=== PATIENT | male | born 1950 | race Caucasian/White ===

== ENCOUNTER 2020-12-26 12:20 | Emergency (ER) | payer BC, MEDICARE ==
[~2020-12-26 12:20] MED LIST: ACTOS45 MG PO; ATIVAN0.5 MG PO; METFORMIN ER500 MG PO; NORCO 325 MG-101 TA1 PO; NORVASC 5MG5 MG/TAB PO; PLAVIX 75MG TAB75 MG PO; PROZAC20 MG PO; TRAZODONE50 MG PO; ZESTRIL 10MG10 MG PO; ZETIA 10MG TAB10 MG PO
[2020-12-26 13:40] LABS: EOS # 0.2 (0.04-0.40); EOS % 2.8 % (0.0-4.0); HEMATOCRIT 47.4 % (42.0-52.0); HEMOGLOBIN 14.8 g/dL (13.5-18.0); LYMPH# 0.9 (1.50-4.00); MEAN CELL VOLUME 100 fl (78-100); MEAN CORPUSCULAR HEMOGLOBIN 31 pg (27-31); MEAN CORPUSCULAR HGB CONC 31 g/dL (33-37); MEAN PLATELET VOLUME 9.7 fl (7.4-10.4); MONO # 0.7 (0.20-0.80); PLATELET COUNT 179 K/mm3 (130-400); RED BLOOD COUNT 4.75 M/mm3 (4.20-5.60); RED CELL DISTRIBUTION WIDTH 14.9 % (11.5-14.5); WHITE BLOOD COUNT 6.8 K/mm3 (4.8-10.8)
[2020-12-26 13:49] LABS: ALBUMIN 3.7 g/dL (3.4-4.8)
[2020-12-26 13:50] LABS: POTASSIUM 4.6 mmol/L (3.5-5.1); PROTHROMBIN TIME 9.9 SECONDS (9.0-12.0); SODIUM 140 mmol/L (136-145)
[2020-12-26 13:51] LABS: CALCIUM 8.7 mg/dL (8.3-10.5)
[2020-12-26 13:52] LABS: GLUCOSE 192 mg/dL (75-110)
[2020-12-26 13:53] LABS: CARBON DIOXIDE 23 mmol/L (23-31)
[2020-12-26 13:54] LABS: TOTAL BILIRUBIN 0.3 mg/dL (0.2-1.2)
[2020-12-26 13:57] LABS: AST-SGOT 23 U/L (5-34)
[2020-12-26 13:59] LABS: ALT/SGPT 44 U/L (0-55)
[2020-12-26 14:05] LABS: TROPONIN-I < 0.03 ng/mL (<0.030)
[2020-12-26 14:29] LABS: URINE APPEARANCE CLEAR; URINE BLOOD NEGATIVE (NEGATIVE); URINE COLOR YELLOW; URINE GLUCOSE NEGATIVE (NEGATIVE); URINE KETONE NEGATIVE (NEGATIVE); URINE LEUKOCYTE ESTERASE 1+ (NEGATIVE); URINE NITRATE NEGATIVE (NEGATIVE); URINE PROTEIN(semi-quant) 1+ mg/dL (NEGATIVE); URINE UROBILINOGEN NORMAL (NORMAL)
[2020-12-26 14:30] LABS: URINE BILIRUBIN NEGATIVE (NEGATIVE); URINE MUCUS PRESENT (NOT PRESENT)
[2020-12-26] MEDS ORDERED: BACTRIM DS TAB1 EACH PO (14:53)
[2020-12-26 15:02] VITALS: BP 189/90
== END 2020-12-26 15:02 | disposition home or self-care (01) ==
LOC: ED 12:20
PROVIDERS: Physician Assistant
DX: N39.0 Urinary tract infection, site not specified (principal); S80.812A Abrasion, left lower leg, initial encounter; L03.116 Cellulitis of left lower limb; Z20.822 Contact with and (suspected) exposure to COVID-19; Z79.84 Long term (current) use of oral hypoglycemic drugs; Z79.02 Long term (current) use of antithrombotics/antiplatelets; X58.XXXA Exposure to other specified factors, initial encounter
CPT/HCPCS: J0696

== ENCOUNTER → 2021-05-16 | Outpatient (CLI) | payer BC, MEDICARE ==
[~2021-05-16] MED LIST changes: +BACTRIM DS TAB1 EACH PO
== END ==
LOC: RAD 16:59 → AMSURD 16:59
DX: Z01.812 Encounter for preprocedural laboratory examination (principal)

== ENCOUNTER → 2021-06-11 | Outpatient (CLI) | payer BC, MEDICARE | LOC: RAD 15:08 | DX: R60.0 Localized edema (principal) ==

== ENCOUNTER 2023-09-08 11:32 | Emergency (ER) | payer BC, MEDICARE ==
[~2023-09-08] VITALS: Ht 157.5 cm; Wt 90.7 kg
[~2023-09-08 11:32] MED LIST changes: -ZESTRIL 10MG10 MG PO; +ZESTRIL20 M1 PO
[2023-09-08] MEDS ORDERED: LINZESS72 MCG PO (12:14)
[2023-09-08] MEDS ORDERED: ATORVASTATIN CA40 MG PO (12:15)
[2023-09-08] MEDS ORDERED: NITROGLYCERIN0.4 M1 SL (12:15)
[2023-09-08] MEDS ORDERED: TRESIBA FL200 UNIT/1 SQ (12:16)
[2023-09-08] MEDS ORDERED: NOVOLOG FLEX100 U/ML SQ (12:20)
[2023-09-08] MEDS ORDERED: AMIODARONE200 MG PO (12:21)
[2023-09-08] MEDS ORDERED: WELLBUTRIN XL300 M1 PO (12:22)
[2023-09-08] MEDS ORDERED: LAMOTRIGINE200 MG PO (12:23)
[2023-09-08] MEDS ORDERED: BD ULTRA-FINE1 EACH MC (12:23)
[2023-09-08] MEDS ORDERED: FLOMAX0.4 MG PO (12:24)
[2023-09-08] MEDS ORDERED: GLUCAGON EMERGEN1 M1 IJ (12:24)
[2023-09-08] MEDS ORDERED: ACETAMINOPHEN-H1 TA1 PO (12:24)
[2023-09-08] MEDS ORDERED: QUETIAPINE FUMA50 MG PO (12:25)
[2023-09-08] MEDS ORDERED: DOCUSATE SOD100 MG PO (12:27)
[2023-09-08] MEDS ORDERED: VITAMIN D21250 MCG PO (12:27)
[2023-09-08] MEDS ORDERED: FUROSEMIDE20 MG PO (12:29)
[2023-09-08] MEDS ORDERED: TYLENOL PM EXTR1 TA1 PO (12:29)
[2023-09-08 13:02] LABS: EOS # 0.03 K/mm3 (0.04-0.40); EOS % 0.5 % (0.0-4.0); HEMATOCRIT 45.6 % (42.0-52.0); HEMOGLOBIN 14.5 g/dL (13.5-18.0); LYMPH# 1.07 K/mm3 (1.50-4.00); MEAN CELL VOLUME 102 fl (78-100); MEAN CORPUSCULAR HEMOGLOBIN 33 pg (27-31); MEAN CORPUSCULAR HGB CONC 32 g/dL (33-37); MEAN PLATELET VOLUME 9.7 fl (7.4-10.4); PLATELET COUNT 178 K/mm3 (130-400); RED BLOOD COUNT 4.46 M/mm3 (4.20-5.60); RED CELL DISTRIBUTION WIDTH 13.4 % (11.5-14.5); WHITE BLOOD COUNT 5.8 K/mm3 (4.8-10.8)
[2023-09-08 13:10] LABS: ALBUMIN 4.3 g/dL (3.4-4.8); SODIUM 139 mmol/L (136-145)
[2023-09-08 13:11] LABS: CALCIUM 9.8 mg/dL (8.3-10.5)
[2023-09-08 13:12] LABS: GLUCOSE 179 mg/dL (75-110)
[2023-09-08 13:14] LABS: CARBON DIOXIDE 22 mmol/L (23-31); TOTAL BILIRUBIN 0.5 mg/dL (0.2-1.2)
[2023-09-08 13:18] LABS: AST-SGOT 24 U/L (5-34)
[2023-09-08 13:19] LABS: ALT/SGPT 29 U/L (0-55)
[2023-09-08 13:27] LABS: TROPONIN-I < 0.030 ng/mL (<0.030)
[2023-09-08] MEDS ORDERED: PREDNISONE10 MG PO (14:32)
[2023-09-08] MEDS ORDERED: IPRATROPIUM BROM3 M1 IH (14:32)
[2023-09-08] MEDS ORDERED: MORGIDOX 1X100100 MG PO (14:32)
[2023-09-08 14:44] VITALS: BP 177/77
== END 2023-09-08 14:46 | disposition home or self-care (01) ==
LOC: ED 11:32
PROVIDERS: Physician Assistant
DX: J44.1 Chronic obstructive pulmonary disease with (acute) exacerbation (principal); I10 Essential (primary) hypertension; Z95.810 Presence of automatic (implantable) cardiac defibrillator; Z98.61 Coronary angioplasty status
CPT/HCPCS: J7512

== ENCOUNTER → 2023-11-12 | Outpatient (CLI) | payer BC, MEDICARE ==
[~2023-11-12] VITALS: Ht 157.5 cm; Wt 88.6 kg
[~2023-11-12] MED LIST changes: +ACETAMINOPHEN-H1 TA1 PO; +AMIODARONE200 MG PO; +ATORVASTATIN CA40 MG PO; +BD ULTRA-FINE1 EACH MC; +DOCUSATE SOD100 MG PO; +FLOMAX0.4 MG PO; +FUROSEMIDE20 MG PO; +GLUCAGON EMERGEN1 M1 IJ; +IPRATROPIUM BROM3 M1 IH; +LAMOTRIGINE200 MG PO; +LINZESS72 MCG PO; +MORGIDOX 1X100100 MG PO; +NITROGLYCERIN0.4 M1 SL; +NOVOLOG FLEX100 U/ML SQ; +PREDNISONE10 MG PO; +QUETIAPINE FUMA50 MG PO; +TRESIBA FL200 UNIT/1 SQ; +TYLENOL PM EXTR1 TA1 PO; +VITAMIN D21250 MCG PO; +WELLBUTRIN XL300 M1 PO
[2023-11-12 08:35] VITALS: BP 165/79
[2023-11-12 10:15] VITALS: BP 153/67
[2023-11-13 23:17] LABS: ADRENOCORTICOTROPIC HORMONE 35 pg/mL (5-27)
== END ==
LOC: AMSURD 06:18
PROVIDERS: Internal Medicine
DX: I95.1 Orthostatic hypotension (principal)
CPT/HCPCS: J0834

== ENCOUNTER → 2024-07-22 | Outpatient (CLI) | payer BC, MEDICARE | LOC: RAD 15:05 | DX: Z01.818 Encounter for other preprocedural examination (principal); I51.7 Cardiomegaly; Z95.0 Presence of cardiac pacemaker ==

== ENCOUNTER → 2024-10-21 | Outpatient (CLI) | payer BC, MEDICARE | LOC: RAD 15:05 | DX: M79.672 Pain in left foot (principal); M25.572 Pain in left ankle and joints of left foot ==